=== PATIENT | female | born 1990 | race Caucasian/White ===

== ENCOUNTER 2016-11-02 19:20 | Emergency (ER) | payer SELFPAY ==
--- NOTE | 2016-11-02 21:59 | ED NURSING NOTES ---
Clinical Report - Nurses [facility] [address] [place] [address] 11/02/2016 19:20 Patient: CHRISTOPHER ELLSWORTH TRIAGE Triage time 1910. Acuity: LEVEL 3. Chief Complaint: ABDOMINAL PAIN and NAUSEA and (LLQ pain with dizziness). 19:10. --19:27 Ana Maria Soriano R.N. 19:10 11/02/16. BP: 134/84. HR: 112. RR: 17. O2 saturation: 100%. Temp: 98.2 F. Pain level now: 01/02. --19:27 Ana Maria Soriano R.N. Weight: 61.2 kg stated. Height/Length: 65 inches Per Patient. BMI: 22.5. --19:23 Ana Maria Soriano R.N. Medications Unable to Obtain. --22:53 Solitario Martin R.N. Allergies No Known Drug Allergy. --22:53 Solitario Martin R.N. History Historian: patient. Arrived in police custody and accompanied by police. No primary care physician. Onset. (1700). She has had nausea and abdominal pain. ( denies vag bleeding , denies black or bloody stools, denies pain or frequency with urination). No vomiting or diarrhea. PAST MEDICAL HX: Negative. Last normal menstrual period- Pt states she may be 4-5 months preg , pt was 6 months preg when she miscarried, about 2 years ago. 2. Para 0. Abortions 1. SURGERY HX: ( lt ovarian cyst). SOCIAL HX: Heavy tobacco smoker (cigarette)- 1 pack per day. History of drug use: heroin, marijuana. (last used 1300). No alcohol use. --19:27 Ana Maria Soriano R.N. ( pt states symptoms are simular to when she had an ovarian cyst). --19:48 Ana Maria Soriano R.N. PROBLEMS: Nausea. Anxiety Reaction. --19:27 Ana Maria Soriano R.N. ADDITIONAL SURGERIES: Left hand 5th digit surg . Ovairan cyst . --19:27 Ana Maria Soriano R.N. Interventions ID band on patient. To treatment room. --19:27 Aan Maria Soriano R.N. PHYSICAL ASSESSMENT 19:10. Ambulatory to room. GENERAL / NEURO / PSYCH: Alert. Oriented X 4. ( c/o dizziness). RESPIRATORY: Respirations not labored. CVS: Capillary refill less than 2 seconds. GI / : The patient has had nausea. Abdominal tenderness. SKIN: Skin is warm and dry. --19:28 Aan Maria Soriano R.N. NURSING PROGRESS NOTES 19:10. Reassurance given. Patient identifiers checked. Call light placed in reach. Side rails up. Bed placed in lowest position. Patient ready for evaluation- chart flagged. --19:27 Ana Maria Soriano R.N. 19:30. ( up to BSC, 200cc dark diamante urine out. U preg= Pos + EDNP notified). --19:47 Ana Maria Soriano R.N. 19:37. ( attempted heart tones, none obtained. EDNP notified). --19:47 Ana Maria Soriano R.N. 19:44 11/02/2016 Site #1 started via IV in the left antecubital space with an 20g angiocath, with aseptic technique and good blood return; one attempt. Blood drawn: rainbow set. Labeled in the presence of the patient and sent to the lab. Saline lock flushed with 10 mL saline. --19:49 Solitario Martin R.N. 20:15. ( resting quietly with police at bedside. waiting for lab results, pt c/o headache in back of head). --20:25 Ana Maria Soriano R.N. 21:10 Pt notified of 30 min wait for US exam. Pt asking for something to "calm her down" also c/o nausea. ERNP notified, meds ordered for nausea. --21:20 Ana Maria Soriano R.N. 21:15 11/02/2016 Zofran (Ondansetron HCl) IVP 4 mg given over 1 minute(s) via site #1. IV patency established. IV site checked: no pain, redness, or swelling. IV flushed thoroughly pre- and post-medication administration. IVP given by RN. --21:21 Ana Maria Soriaon R.N. [id number] US at bedside to do exam. --21:27 Ana Maria Soriano R.N. 22:12. The patient is calm and resting quietly. SKIN: Skin is warm and dry. Skin color within normal limits. --22:31 Solitario Martin R.N. DISPOSITION / DISCHARGE 22:12 11/02/2016 Site #1 removed upon discharge. Catheter intact. Bandage applied. --22:15 Solitario Martin R.N. Departure time: 22:17. Condition at departure: improved and stable. No learning barriers present. Discharge instructions provided and reviewed with the patient ([place] officer). Reviewed medication(s) side effects, precautions, dosing and course information (Rx given to [place] officer). Patient verbalized understanding. Written instructions provided in Maltese. Verbalized understanding ([place] officer). The patient was discharged to police department facility and accompanied by a police escort. She left the Emergency Department ambulatory and via police department vehicle. FALL RISK ASSESSMENT: Fall risk assessment completed. No fall risk identified. --22:30 Solitario Martin R.N. 22:18 11/02/16. BP: 119/77. HR: 87. RR: 15. O2 saturation: 100% on room air. Pain level now: 06/04. --22:30 Solitario Martin R.N. Locked/Released at 11/02/2016 22:54 by Solitario Martin R.N.
--- NOTE | 2016-11-02 21:59 | ED ORDER SUMMARY ---
..... Patient: CHRISTOPHER ELLSWORTH OrderSheet [facility] VisitID: [id number] [place] [address] 26y, F Registration Date/Time: 11/02/2016 ORDER SHEET Weight: 61.2 kg (stated) Allergies: No Known Drug Allergy GENERAL ORDERS: CBC w Diff Urgent (19:37 11/02/2016 HBivens A.R.N.P.) (Ack 19:39 CHagerty ER Production Solderer) (19:49 JQuivey R.N.) CMP Urgent (19:37 11/02/2016 HBivens A.R.N.P.) (Ack 19:39 CHagerty ER Production Solderer) (19:49 JQuivey R.N.) UA-Culture if indicated Urgent (19:37 11/02/2016 HBivens A.R.N.P.) (Ack 19:39 CHagerty ER Production Solderer) (19:53 DDean R.N.) Urine Urgent (19:37 11/02/2016 HBivens A.R.N.P.) (Ack 19:39 CHagerty ER Production Solderer) (Cancelled: Other19:49 DDean R.N.) Urine Drug Screen Urgent (19:37 11/02/2016 HBivens A.R.N.P.) (Ack 19:39 CHagerty ER Production Solderer) (19:53 DDean R.N.) Lipase Urgent (19:37 11/02/2016 HBivens A.R.N.P.) (Ack 19:39 CHagerty ER Production Solderer) (19:50 JQuivey R.N.) Amylase Urgent (19:37 11/02/2016 HBivens A.R.N.P.) (Ack 19:39 CHagerty ER Production Solderer) (19:50 JQuivey R.N.) POC - Urine hCG (19:49 11/02/2016 DDean R.N. per protocol) (19:49 DDean R.N.) US OB 1st Trimester w Transvag (unknown) Urgent (20:38 11/02/2016 HBivens A.R.N.P.) (Ack 20:40 CHagerty ER Production Solderer) (22:06 CHagerty ER Production Solderer) (Cancelled: Other22:06 CHagerty ER Production Solderer) Serum Quantitative Urgent (20:39 11/02/2016 HBivens A.R.N.P.) (Ack 20:40 CHagerty ER Production Solderer) (21:22 CHagerty ER Production Solderer) US OB 2nd Trimester (UNK) Urgent (22:04 11/02/2016 CHagerty ER Production Solderer verbal order read back to HBivens A.R.N.P.) (Ack 22:06 CHagerty ER Production Solderer) (22:22 CHagerty ER Production Solderer) MEDICATION ORDERS: IV FLUIDS: IV Saline Lock (19:37 11/02/2016 HBivens A.R.N.P.) (19:49 Ceci R.N.) Zofran IV 4 mg (NOW) (21:21 11/02/2016 DDean R.N. verbal order read back to HBivens A.R.N.P.) (21:21 DDean R.N.) ORDER SHEET NOTES: [Electronically signed by Solitario Martin R.N. (22:54 11/02/2016)] [Electronically signed by Lor RehmanR.N.P. (23:50 11/02/2016)] [Electronically locked/signed by Solitario Martin R.N. (22:54 11/02/2016)]
--- NOTE | 2016-11-02 21:59 | ED CLINICAL REPORT ---
Clinical Report - Physicians/Mid Levels [facility] [address] [place] [address] 11/02/2016 19:20 Patient: CHRISTOPHER ELLSWORTH Time Seen: 19:24; initial patient contact, initial documentation, patient care assumed. Arrived- Police present. Historian- patient. HISTORY OF PRESENT ILLNESS Chief Complaint: ABDOMINAL PAIN. At its maximum, severity described as severe. When seen in the E.D., severity described as moderate. Modifying factors. Not worsened by anything. Not relieved by anything. This started just prior to arrival about 2 - 3 ago WARP TENSION TESTER and is still present. It was abrupt in onset and has been constant. It is described as "pain" and sharp and it is described as located in the left upper quadrant, left abdomen and left lower quadrant. The patient has had nausea. No loss of appetite, vomiting or diarrhea. No recent travel. Similar symptoms previously: None. Recent medical care: Not recently seen/assessed. REVIEW OF SYSTEMS No constipation, black stools, hematemesis, difficulty with urination or pain with urination. No urinary frequency, fever, chest pain or difficulty breathing. Currently : might be G 2. P 1. Ab 1. In the past she has had irregular periods. They have been less frequent than normal and consisted of missed periods. All systems otherwise negative, except as recorded above. PAST HISTORY See nurses notes. PROBLEMS: Nausea. Anxiety Reaction. --19:27 Ana Maria Soriano RMayra. ADDITIONAL SURGERIES: Left hand 5th digit surg . Ovairan cyst . --19:27 Ana Maria Soriano RMayra. SOCIAL HISTORY Heavy tobacco smoker. Occasional alcohol use. History of heavy drug use: heroin, marijuana. Recently used drugs just prior to arrival. Under influence in ED. No recent travel. Is a local resident. FAMILY HISTORY Negative. ADDITIONAL NOTES The nursing notes have been reviewed with agreement regarding the chief complaint, HPI, ROS, PMH and patient medications and allergies. PHYSICAL EXAM Vital Signs: 11/02/2016 19:10 BP: 134/84. HR: 112. RR: 17. O2 saturation: 100%. Temp: 98.2 F. Pain level now: 01/02. Have been reviewed as abnormal and appear to be correct. Blood pressure normal. Tachycardic. Respiratory rate normal. Temperature normal. Oxygen saturation normal. Appearance: Alert. Oriented X3. No acute distress. Eyes: Pupils equal, round and reactive to light. Eyes normal inspection. Neck: Normal inspection. Neck supple. CVS: Normal heart rate and rhythm. Heart sounds normal. Pulses normal. Respiratory: No respiratory distress. Breath sounds normal. Chest nontender. Abdomen: Soft and nontender. Bowel sounds normal. No organomegaly. No mass. Back: Normal inspection. Skin: Skin warm and dry. Normal skin color. No rash. Normal skin turgor. Extremities: Extremities exhibit normal ROM. No lower extremity edema. Neuro: Oriented X 3. No motor deficit. No sensory deficit. LABS, X-RAYS, AND EKG Pelvic Sonogram: Normal study. Intrauterine present. An intrauterine is present. . 14 iup hr 160's per verbal report by US Vogt. Interpretation time: 21:51. Laboratory Tests: UA-Culture if indicated: (GERALDO: 11/02/2016 19:30) ( MsgRcvd 11/02/2016 20:29) Final results Test Result Flag Units (Reference) URINE COLOR YELLOW URINE APPEARANCE CLEAR URINE GLUCOSE NEGATIVE (NEGATIVE) URINE BILIRUBIN NEGATIVE (NEGATIVE) URINE KETONE 2+ (NEGATIVE) URINE SPECIFIC GRAVITY 1.025 (1.010-1.030) URINE PH 6.0 (5.0-8.0) URINE PROTEIN NEGATIVE (NEGATIVE) URINE UROBILINOGEN 0.2 EU/dL (0.2-1.0) URINE NITRITE POSITIVE (NEGATIVE) URINE BLOOD NEGATIVE (NEGATIVE) URINE LEUK ESTERASE POSITIVE (NEGATIVE) URINE RBC NONE SEEN rbc/hpf (0-1) URINE WBC 10-15 wbc/hpf (0-1) URINE EPITHELIAL CELLS 3-5 EPI/hpf (0-5) URINE BACTERIA MANY (4+) (NONE SEEN) URINE COMMENT CULTURE INDICATED URINE CULTURES ARE SET-UP BASED ON THE FOLLOWING CRITERIA:POSITIVE NITRITEPOSITIVE LEUKOCYTE ESTERASEGREATER THAN 10 WHITE BLOOD CELLSMODERATE (2+) OR GREATER BACTERIA Urine: (GERALDO: 11/02/2016 19:30) ( MsgRcvd 11/02/2016 19:55) Final results Test Result Flag Units (Reference) URINE POSITIVE CBC w Diff: (GERALDO: 11/02/2016 19:42) ( [facility] 11/02/2016 20:10) Final results Test Result Flag Units (Reference) WHITE BLOOD COUNT 11.8 H K/uL (4.5-11.5) RED BLOOD COUNT 4.01 M/uL (4.00-5.20) HEMOGLOBIN 12.4 gm/dL (12.0-16.0) HEMATOCRIT 37.0 % (36.0-46.0) MEAN CELL VOLUME 92 fL (80-100) MEAN CORPUSCULAR HGB 31 pg (26-34) MEAN CORPUSCULAR HGB CONC 33 g/dL (31-37) RED CELL DISTRIBUTION WIDTH 13.0 % (11.6-14.8) PLATELET COUNT 262 K/uL (150-400) NEUTROPHIL % 74.9 % (50-75) LYMPH % 16.6 L % (25-40) MONO % 5.4 % (3-14) EOSINOPHIL % 2.7 % (0-4) BASOPHIL % 0.4 % (0-2) Urine Drug Screen: (GERALDO: 11/02/2016 19:30) ( [facility] 11/02/2016 20:11) Final results Test Result Flag Units (Reference) AMPHETAMINE/METHAMPHETAMINE POSITIVE H (NEGATIVE) BARBITURATE NEGATIVE (NEGATIVE) BENZODIAZEPINE NEGATIVE (NEGATIVE) CANNABINOID POSITIVE H (NEGATIVE) COCAINE NEGATIVE (NEGATIVE) ECSTASY POSITIVE H (NEGATIVE) METHADONE NEGATIVE (NEGATIVE) OPIATE POSITIVE H (NEGATIVE) The urine drug screen is a qualitative screening test fordrug overdose and abuse. All screen results should beconsidered as presumptive.Drugs screened for are as follows:BenzodiazepinesCocaineAmphetamines/MetamphetaminesTHC (Tetrahydrocannabinol)OpiatesBarbituratesEcstasyMethadonePositive results are unconfirmed. For confirmation, notifythe lab for the specimen to be sent to the reference lab.All confirmations must be performed by a differentmethodology.The ingestion of natural herbal and plant productscontaining Ephedra/Ephedra metabolites can produce in urineone or more substances capable of cross reacting withamphetamine/methamphetamine immunoassays. These testsprovide a preliminary result only. A more specificalternative chemical method must be used to obtain aconfirmed analytical result. . PROGRESS AND PROCEDURES Course of Care: 2034. pt informed of lab results and demanding US 21:15 11/02/16. nurse reporting that pt is wanting something for anxiety, request denied with being , pt upset because she has no family or friend with her, pt is in police custody and there has been officer with her during her stay 21:42 11/02/16. US at bedside 23:01 11/02/16. spoke to Dr Sabrina ALEMAN. Patient counseled in person regarding the patient's stable condition, test results and diagnosis. 21:52. Differential Diagnosis: I considered gastritis, gastroenteritis, peptic ulcer disease, gastroesophageal reflux disease, diverticulitis, colon cancer, ulcerative colitis, Crohn's disease, obstipation, splenic infarction, splenic abscess, urinary tract infection, ureterolithiasis, and viral syndrome as a possible cause of abdominal pain in this patient. This is a partial list of diagnoses considered. Above considerations are based on history, physical exam, reassessment and laboratory data. Differential diagnosis was discussed with patient. Disposition: Discharged home in good and improved condition (21:59). Condition: good and stable. CLINICAL IMPRESSION Acute urinary tract infection with cystitis. No pyelonephritis or hematuria. Not associated with indwelling catheter or obstruction. Acute abdominal pain of undetermined cause. INSTRUCTIONS Drink plenty of fluids. Warnings: GENERAL WARNINGS: Return or contact your physician immediately if your condition worsens or changes unexpectedly, if not improving as expected, or if other problems arise. SPECIFICALLY, return if you develop pain in the abdomen or pelvis, fever, the inability to keep fluids down, blood in vomitus, blood in diarrhea, fainting, lightheadedness or vaginal bleeding. Prescription Medications: Macrobid 100 mg: Take 1 capsule orally every 12 hours for 7 days. No refills. Substitution is permissible. Follow-up: Follow up with your doctor in about three days even if well. Call for an appointment. Summary of care provided to patient. Understanding of the discharge instructions verbalized by patient. (Electronically signed by Lor Rehman A.R.N.P. 11/02/2016 23:50)
--- NOTE | 2016-11-02 21:59 | ED ORDER SUMMARY ---
..... Patient: CHRISTOPHER ELLSWORTH OrderSheet [facility] VisitID: [id number] [place] [address] 26y, F Registration Date/Time: 11/02/2016 ORDER SHEET Weight: 61.2 kg (stated) Allergies: No Known Drug Allergy GENERAL ORDERS: CBC w Diff Urgent (19:37 11/02/2016 HBivens A.R.N.P.) (Ack 19:39 CHagerty ER Veterinarian Helper) (19:49 JQuivey R.N.) CMP Urgent (19:37 11/02/2016 HBivens A.R.N.P.) (Ack 19:39 CHagerty ER Veterinarian Helper) (19:49 JQuivey R.N.) UA-Culture if indicated Urgent (19:37 11/02/2016 HBivens A.R.N.P.) (Ack 19:39 CHagerty ER Veterinarian Helper) (19:53 DDean R.N.) Urine Urgent (19:37 11/02/2016 HBivens A.R.N.P.) (Ack 19:39 CHagerty ER Veterinarian Helper) (Cancelled: Other19:49 DDean R.N.) Urine Drug Screen Urgent (19:37 11/02/2016 HBivens A.R.N.P.) (Ack 19:39 CHagerty ER Veterinarian Helper) (19:53 DDean R.N.) Lipase Urgent (19:37 11/02/2016 HBivens A.R.N.P.) (Ack 19:39 CHagerty ER Veterinarian Helper) (19:50 JQuivey R.N.) Amylase Urgent (19:37 11/02/2016 HBivens A.R.N.P.) (Ack 19:39 CHagerty ER Veterinarian Helper) (19:50 JQuivey R.N.) POC - Urine hCG (19:49 11/02/2016 DDean R.N. per protocol) (19:49 DDean R.N.) US OB 1st Trimester w Transvag (unknown) Urgent (20:38 11/02/2016 HBivens A.R.N.P.) (Ack 20:40 CHagerty ER Veterinarian Helper) (22:06 CHagerty ER Veterinarian Helper) (Cancelled: Other22:06 CHagerty ER Veterinarian Helper) Serum Quantitative Urgent (20:39 11/02/2016 HBivens A.R.N.P.) (Ack 20:40 CHagerty ER Veterinarian Helper) (21:22 CHagerty ER Veterinarian Helper) US OB 2nd Trimester (UNK) Urgent (22:04 11/02/2016 CHagerty ER Veterinarian Helper verbal order read back to HBivens A.R.N.P.) (Ack 22:06 CHagerty ER Veterinarian Helper) (22:22 CHagerty ER Veterinarian Helper) MEDICATION ORDERS: IV FLUIDS: IV Saline Lock (19:37 11/02/2016 HBivens A.R.N.P.) (19:49 Ceci R.N.) Zofran IV 4 mg (NOW) (21:21 11/02/2016 DDean R.N. verbal order read back to HBivens A.R.N.P.) (21:21 DDean R.N.) ORDER SHEET NOTES: [Electronically signed by Solitario Martin R.N. (22:54 11/02/2016)] [Electronically signed by Lor RehmanR.N.P. (23:50 11/02/2016)] [Electronically locked/signed by Solitario Martin R.N. (22:54 11/02/2016)]
--- NOTE | 2016-11-02 21:59 | ED NURSING NOTES ---
Clinical Report - Nurses [facility] [address] [place] [address] 11/02/2016 19:20 Patient: CHRISTOPHER ELLSWORTH TRIAGE Triage time 1910. Acuity: LEVEL 3. Chief Complaint: ABDOMINAL PAIN and NAUSEA and (LLQ pain with dizziness). 19:10. --19:27 Ana Maria Soriano R.N. 19:10 11/02/16. BP: 134/84. HR: 112. RR: 17. O2 saturation: 100%. Temp: 98.2 F. Pain level now: 01/02. --19:27 Ana Maria Soriano R.N. Weight: 61.2 kg stated. Height/Length: 65 inches Per Patient. BMI: 22.5. --19:23 Ana Maria Soriano R.N. Medications Unable to Obtain. --22:53 Solitario Martin R.N. Allergies No Known Drug Allergy. --22:53 Solitario Martin R.N. History Historian: patient. Arrived in police custody and accompanied by police. No primary care physician. Onset. (1700). She has had nausea and abdominal pain. ( denies vag bleeding , denies black or bloody stools, denies pain or frequency with urination). No vomiting or diarrhea. PAST MEDICAL HX: Negative. Last normal menstrual period- Pt states she may be 4-5 months preg , pt was 6 months preg when she miscarried, about 2 years ago. 2. Para 0. Abortions 1. SURGERY HX: ( lt ovarian cyst). SOCIAL HX: Heavy tobacco smoker (cigarette)- 1 pack per day. History of drug use: heroin, marijuana. (last used 1300). No alcohol use. --19:27 Ana Maria Soriano R.N. ( pt states symptoms are simular to when she had an ovarian cyst). --19:48 Ana Maria Soriano R.N. PROBLEMS: Nausea. Anxiety Reaction. --19:27 Ana Maria Soriano R.N. ADDITIONAL SURGERIES: Left hand 5th digit surg . Ovairan cyst . --19:27 Ana Maria Soriano R.N. Interventions ID band on patient. To treatment room. --19:27 Ana Maria Soriano R.N. PHYSICAL ASSESSMENT 19:10. Ambulatory to room. GENERAL / NEURO / PSYCH: Alert. Oriented X 4. ( c/o dizziness). RESPIRATORY: Respirations not labored. CVS: Capillary refill less than 2 seconds. GI / : The patient has had nausea. Abdominal tenderness. SKIN: Skin is warm and dry. --19:28 Ana Maria Soriano R.N. NURSING PROGRESS NOTES 19:10. Reassurance given. Patient identifiers checked. Call light placed in reach. Side rails up. Bed placed in lowest position. Patient ready for evaluation- chart flagged. --19:27 Ana Maria Soriano R.N. 19:30. ( up to BSC, 200cc dark diamante urine out. U preg= Pos + EDNP notified). --19:47 Ana Maria Soriano R.N. 19:37. ( attempted heart tones, none obtained. EDNP notified). --19:47 Ana Maria Soriano R.N. 19:44 11/02/2016 Site #1 started via IV in the left antecubital space with an 20g angiocath, with aseptic technique and good blood return; one attempt. Blood drawn: rainbow set. Labeled in the presence of the patient and sent to the lab. Saline lock flushed with 10 mL saline. --19:49 Solitario Martin R.N. 20:15. ( resting quietly with police at bedside. waiting for lab results, pt c/o headache in back of head). --20:25 Ana Maria Soriano R.N. 21:10 Pt notified of 30 min wait for US exam. Pt asking for something to "calm her down" also c/o nausea. ERNP notified, meds ordered for nausea. --21:20 Ana Maria Soriano R.N. 21:15 11/02/2016 Zofran (Ondansetron HCl) IVP 4 mg given over 1 minute(s) via site #1. IV patency established. IV site checked: no pain, redness, or swelling. IV flushed thoroughly pre- and post-medication administration. IVP given by RN. --21:21 Ana Maria Soriano R.N. [id number] US at bedside to do exam. --21:27 Ana Maria Soriano R.N. 22:12. The patient is calm and resting quietly. SKIN: Skin is warm and dry. Skin color within normal limits. --22:31 Solitario Martin R.N. DISPOSITION / DISCHARGE 22:12 11/02/2016 Site #1 removed upon discharge. Catheter intact. Bandage applied. --22:15 Solitario Martin R.N. Departure time: 22:17. Condition at departure: improved and stable. No learning barriers present. Discharge instructions provided and reviewed with the patient ([place] officer). Reviewed medication(s) side effects, precautions, dosing and course information (Rx given to [place] officer). Patient verbalized understanding. Written instructions provided in Vietnamese. Verbalized understanding ([place] officer). The patient was discharged to police department facility and accompanied by a police escort. She left the Emergency Department ambulatory and via police department vehicle. FALL RISK ASSESSMENT: Fall risk assessment completed. No fall risk identified. --22:30 Solitario Martin R.N. 22:18 11/02/16. BP: 119/77. HR: 87. RR: 15. O2 saturation: 100% on room air. Pain level now: 06/04. --22:30 Solitario Martin R.N. Locked/Released at 11/02/2016 22:54 by Solitario Martin R.N.
--- NOTE | 2016-11-02 23:14 | DIAGNOSTIC IMAGING REPORT ---
PROCEDURE: US 2ND TRIMESTER INDICATION: PAIN TECHNIQUE: Garcia scale, color, and spectral Doppler images of the second trimester gravid uterus were obtained. COMPARISON: None. FINDINGS: There is an second trimester viable intrauterine in variable position. The cardiac activity (160). Placenta is anterior and there is evidence of previa. There is no evidence of abruption. There is also a ventral uterine contraction. Normal fluid and cervix length (3.6 cm). BPD 2.5 cm (14.3 weeks), HC 9.3 cm (14.0 weeks), AC 7.6 cm (14.0 weeks), FL 1.2 cm (13.3 weeks). Adnexal regions and ovaries appear normal. There is layering proteinaceous material in the urinary bladder. IMPRESSION: 1. Second trimester viable intrauterine at 14.0 weeks menstrual age (plus or minus 1 week). KASSANDRA is 05/03/2019. 2. Anterior placenta with previa. While this will most likely "migrate" later in , follow-up obstetric ultrasound later in (i.e. at the time of anatomic survey study or third trimester ), is recommended to confirm resolution. 3. Ventral uterine contraction (most likely incidental). 4. Proteinaceous limited of the urinary bladder consistent with urinary tract infection (cystitis). 5. Findings discussed with DASHAWN Acharya.
--- NOTE | 2016-11-02 23:51 | ED DISCHARGE INSTRUCTIONS ---
Patient: CHRISTOPHER ELLSWORTH General Instructions [facility] VisitID: [id number] [place] [address] 26y, F Registration Date/Time: 11/02/2016 Acute urinary tract infection with cystitis. No pyelonephritis or hematuria. Not associated with indwelling catheter or obstruction. Acute abdominal pain of undetermined cause. INSTRUCTIONS Drink plenty of fluids. Warnings: GENERAL WARNINGS: Return or contact your physician immediately if your condition worsens or changes unexpectedly, if not improving as expected, or if other problems arise. SPECIFICALLY, return if you develop pain in the abdomen or pelvis, fever, the inability to keep fluids down, blood in vomitus, blood in diarrhea, fainting, lightheadedness or vaginal bleeding. Prescription Medications: Macrobid 100 mg: Take 1 capsule orally every 12 hours for 7 days. No refills. Substitution is permissible. Follow-up: Follow up with your doctor in about three days even if well. Call for an appointment. Summary of care provided to patient. Understanding of the discharge instructions verbalized by patient. ADDITIONAL INFORMATION Abdominal Pain, Unknown Cause (Female) The exact cause of your abdominal (stomach) pain is not certain. This does not mean that this is something to worry about, or the right tests were not done. Everyone likes to know the exact cause of the problem, but sometimes with abdominal pain, there is no clear-cut cause, and this could be a good thing. The good news is that your symptoms can be treated, and you will feel better. Your condition does not seem serious now; however, sometimes the signs of a serious problem may take more time to appear. For this reason,it is important for you to watch for any new symptoms, problems,or worsening of your condition. Over the next few days, the abdominal pain may come and go, or be continuous. Other common symptoms can include nausea and vomiting. Sometimes it can be difficult to tell if you feel nauseous, you may just feel bad and not associate that feeling with nausea. Constipation, diarrhea, and a fever may go along with the pain. The pain may continue even if treated correctly over the following days. Depending on how things go, sometimes the cause can become clear and may require further or different treatment. Additional evaluations, medications, or tests may be needed. Home care Your health care provider may prescribe medications for pain, symptoms, or an infection. Follow the health care provider's instructions for taking these medications. General care Rest until your next exam. No strenuous activities. Try to find positions that ease discomfort. A small pillow placed on the abdomen may help relieve pain. Something warm on your abdomen (such as a heating pad) may help, but be careful not to burn yourself. Diet Do not force yourself to eat, especially if having cramps, vomiting, or diarrhea. Water is important so you do not get dehydrated. Soup may also be good. Sports drinks may also help, especially if they are not too acidic. Make sure you don't drink sugary drinks as this can make things worse. Take liquids in small amounts. Do not guzzle them. Caffeine sometimes makes the pain and cramping worse. Avoid dairy products if you have vomiting or diarrhea. Don't eat large amounts at a time. Wait a few minutes between bites. Eat a diet low in fiber (called a low-residue diet). Foods allowed include refined breads, white rice, fruit and vegetable juices without pulp, tender meats. These foods will pass more easily through the intestine. Avoid whole-grain foods, whole fruits and vegetables, meats, seeds and nuts, fried or fatty foods, dairy, alcohol and spicy foods until your symptoms go away. Follow-up care Follow up with your health care provider as instructed, or if your pain does not begin to improve in the next 24 hours. When to seek medical care Seek prompt medical care if any of the following occur: Pain gets worse or moves to the right lower abdomen New or worsening vomiting or diarrhea Swelling of the abdomen Unable to pass stool for more than three days Fever of 100.4F (38C) or higher, or as directed by your healthcare provider. Blood in vomit or bowel movements (dark red or black color) Jaundice (yellow color of eyes and skin) Weakness, dizziness Chest, arm, back, neck or jaw pain Unexpected vaginal bleeding or missed period Call 911 Call emergency services if any of the following occur: Trouble breathing Confusion Fainting or loss of consciousness Rapid heart rate Seizure Abdominal Pain,Possible Appendicitis [Repeat Exam, Female] Based on your visit today, the exact cause of your abdominal (stomach) pain is not certain. However, you do have some of the early signs of APPENDICITIS. Early in an appendix infection the symptoms can be similar to a simple "stomach ache" or "stomach flu". Therefore, the diagnosis can be hard to make. Since an appendix infection is a serious condition, it is important to know if this is the cause of your symptoms. WAITING for more time to pass and repeating the exam is the best way to find out whether you have appendicitis. Within the next 12-24 hours the cause of your stomach pain should become clear. It is important for you to watch for any new symptoms or worsening of your condition. (See below). Home Care: Rest until your next exam. No strenuous activities. Eat a diet low in fiber (called a low-residue diet). Foods allowed include refined breads, white rice, fruit and vegetable juices without pulp, tender meats. These foods will pass more easily through the intestine. Avoid whole-grain foods, whole fruits and vegetables, meats, seeds and nuts, fried or fatty foods, dairy, alcohol and spicy foods until your symptoms go away. In some cases, you may be asked not to eat or drink anything until you are re-examined. Return for another exam exactly as directed. Follow Up with your doctor or this facility as directed. Get Prompt Medical Attention if any of the following occur: Pain gets worse or moves to the right lower abdomen New or worsening vomiting or diarrhea Swelling of the abdomen Unable to pass stool for more than three days Fever of 100.4F (38C) or higher, or as directed by your healthcare provider Blood in vomit or bowel movements (dark red or black color) Weakness, dizziness or fainting Unexpected vaginal bleeding Bladder Infection,Female (Adult) A bladder infection ("cystitis" or "UTI") usually causes a constant urge to urinate and a burning when passing urine. Urine may be cloudy, smelly or dark. There may be pain in the lower abdomen. A bladder infection occurs when bacteria from the vaginal area enter the bladder opening (urethra). This can occur from sexual intercourse, wearing tight clothing, dehydration and other factors. Home Care: Drink lots of fluids (at least 6-8 glasses a day, unless you must restrict fluids for other medical reasons). This will force the medicine into your urinary system and flush the bacteria out of your body. Avoid sexual intercourse until your symptoms are gone. Avoid caffeine, alcohol and spicy foods. These can irritate the bladder. A bladder infection is treated with antibiotics. You may also be given Pyridium (generic = phenazopyridine) to reduce the burning sensation. This medicine will cause your urine to become a bright orange color. The orange urine may stain clothing. You may wear a pad or panty-liner to protect clothing. Preventing Future Infections: Always wipe from front to back after a bowel movement. Keep the genital area clean and dry. Drink plenty of fluids each day to avoid dehydration. Both sexual partners should wash before intercourse. Urinate right after intercourse to flush out the bladder. Wear cotton underwear and cotton-lined panty hose; avoid tight-fitting pants. If you are on control pills and are having frequent bladder infections, discuss with your doctor. Follow Up: Return to this facility or see your doctor if ALL symptoms are not gone after three days of treatment. Get Prompt Medical Attention if any of the following occur: Fever of 100.4F (38C) or higher, or as directed by your healthcare provider No improvement by the third day of treatment Increasing back or abdominal pain Repeated vomiting; unable to keep medicine down Weakness, dizziness or fainting Vaginal discharge Pain, redness or swelling in the labia (outer vaginal area) Nitrofurantoin, Nitrofurantoin, Macrocrystalline Oral capsule What is this medicine? NITROFURANTOIN (elaine delong) is an antibiotic. It is used to treat urinary tract infections. How should I use this medicine? Take this medicine by mouth with a glass of water. Follow the directions on the prescription label. Take this medicine with food or milk. Take your doses at regular intervals. Do not take your medicine more often than directed. Do not stop taking except on your doctor's advice. Talk to your reverberatory skimmer regarding the use of this medicine in children. While this drug may be prescribed for selected conditions, precautions do apply. What side effects may I notice from receiving this medicine? Side effects that you should report to your doctor or health anesthesiologist and critical care as soon as possible: allergic reactions like skin rash or hives, swelling of the face, lips, or tongue chest pain cough difficulty breathing dizziness, drowsiness fever or infection joint aches or pains pale or blue-tinted skin redness, blistering, peeling or loosening of the skin, including inside the mouth tingling, burning, pain, or numbness in hands or feet unusual bleeding or bruising unusually weak or tired yellowing of eyes or skin Side effects that usually do not require medical attention (report to your doctor or health anesthesiologist and critical care if they continue or are bothersome): dark urine diarrhea headache loss of appetite nausea or vomiting temporary hair loss What may interact with this medicine? antacids containing magnesium trisilicate probenecid quinolone antibiotics like ciprofloxacin, lomefloxacin, norfloxacin and ofloxacin sulfinpyrazone What if I miss a dose? If you miss a dose, take it as soon as you can. If it is almost time for your next dose, take only that dose. Do not take double or extra doses. Where should I keep my medicine? Keep out of the reach of children. Store at room temperature between 15 and 30 degrees C (59 and 86 degrees F). Protect from light. Throw away any unused medicine after the expiration date. What should I tell my health care provider before I take this medicine? They need to know if you have any of these conditions: anemia diabetes [id number] dehydrogenase deficiency kidney disease liver disease lung disease other chronic illness an unusual or allergic reaction to nitrofurantoin, other antibiotics, other medicines, foods, dyes or preservatives or trying to get breast-feeding What should I watch for while using this medicine? Tell your doctor or health anesthesiologist and critical care if your symptoms do not improve or if you get new symptoms. Drink several glasses of water a day. If you are taking this medicine for a long time, visit your doctor for regular checks on your progress. If you are diabetic, you may get a false positive result for sugar in your urine with certain brands of urine tests. Check with your doctor. You have been given the following additional information: Abdominal Pain, Unknown Cause, (Female) Abdominal Pain, Possible Appendicitis (Female) Bladder Infection, Female (Adult) Nitrofurantoin, Nitrofurantoin, Macrocrystalline Oral capsule (Electronically signed by Lor Rehman A.R.N.P. 11/02/2016 23:50)
--- NOTE | 2016-11-02 23:51 | ED MAR SUMMARY ---
..... Medication Administration Record [facility] [address] [place] [address] Patient: CHRISTOPHER ELLSWORTH Visit ID: [id number] 26y, F Weight: 61.2 kg Height/Length: 65 in BMI: 22.5 ALLERGIES: No Known Drug Allergy Given 21:15 11/02/2016 Bo, Feliz Rodgers. Medication Administered: ZOFRAN [IVP] (ONDANSETRON HCL), Dose: 4 mg IVP over 1 minute(s), Site: #1 left AC. Medication Ordered: Zofran IV 4 mg (NOW).
--- NOTE | 2016-11-02 23:51 | ED MED RECONCILIATION SUMMARY ---
Patient: CHRISTOPHER ELLSWORTH Medication Reconciliation Report [facility] VisitID: [id number] [place] [address] 26y, F Registration Date/Time: 11/02/2016 Weight: 61.2 kg Height/Length: 65 in. BMI: 22.5 ALLERGIES: No Known Drug Allergy The patient's Home Medications are listed below: Unable to obtain. The source(s) of the original Home Medication information: Not obtained. The following Medications were given to the patient in the Emergency Department: Zofran [IVP] IVP 4 mg, administered: 11/02/2016 9:15:00 PM The following Medications were prescribed to the patient: Macrobid 100 mg: Take 1 capsule orally every 12 hours for 7 days. No refills. Substitution is permissible. -- Lor Rehman A.R.N.P.
--- NOTE | 2016-11-02 23:51 | ED MAR SUMMARY ---
..... Medication Administration Record [facility] [address] [place] [address] Patient: CHRISTOPHER ELLSWORTH Visit ID: [id number] 26y, F Weight: 61.2 kg Height/Length: 65 in BMI: 22.5 ALLERGIES: No Known Drug Allergy Given 21:15 11/02/2016 Bo, Feliz Rodgers. Medication Administered: ZOFRAN [IVP] (ONDANSETRON HCL), Dose: 4 mg IVP over 1 minute(s), Site: #1 left AC. Medication Ordered: Zofran IV 4 mg (NOW).
--- NOTE | 2016-11-02 23:51 | ED MED RECONCILIATION SUMMARY ---
Patient: CHRISTOPHER ELLSWORTH Medication Reconciliation Report [facility] VisitID: [id number] [place] [address] 26y, F Registration Date/Time: 11/02/2016 Weight: 61.2 kg Height/Length: 65 in. BMI: 22.5 ALLERGIES: No Known Drug Allergy The patient's Home Medications are listed below: Unable to obtain. The source(s) of the original Home Medication information: Not obtained. The following Medications were given to the patient in the Emergency Department: Zofran [IVP] IVP 4 mg, administered: 11/02/2016 9:15:00 PM The following Medications were prescribed to the patient: Macrobid 100 mg: Take 1 capsule orally every 12 hours for 7 days. No refills. Substitution is permissible. -- Lor Rehman A.R.N.P.
== END 2016-11-02 22:17 ==
LOC: ED SRH 19:20
DX: O23.10 Infections of bladder in pregnancy, unspecified trimester (principal); O99.89 Other specified diseases and conditions complicating pregnancy, childbirth and the puerperium; R10.12 Left upper quadrant pain; R10.32 Left lower quadrant pain; R11.0 Nausea; Z72.0 Tobacco use; Z3A.14 14 weeks gestation of pregnancy
CPT/HCPCS: 90004; 90100; 90148; 90197; 90469; 92235; 92530; 92760; 92761; 92762; 92763; 92764; 92765; 92766; 92767; 93070; 95059